=== PATIENT | female | born 1990 | race Caucasian/White ===

== ENCOUNTER → 2016-10-17 | Outpatient (CLI) | payer BC ==
[~2016-10-17] MED LIST: FERROUS SULFAT325 M2 PO; PRENATAL PLUS1 TA1 PO; TAMIFLU 75MG CA75 MG PO; YAZ 28 3 MG-0.01 TAB PO; ZANTAC 150150 MG PO
== END ==
LOC: LAB 12:31
DX: Z34.80 Encounter for supervision of other normal pregnancy, unspecified trimester (principal)